=== PATIENT | male | born 1945 | race Two or more races ===

== ENCOUNTER 2024-08-19 11:16 | Emergency (ER) | payer MEDICARE ==
[~2024-08-19] VITALS: Ht 182.9 cm; Wt 75.3 kg
[2024-08-19] MEDS ORDERED: IV NS 0.9% 250 ML IV ONE (12:00)
[2024-08-19] MEDS ORDERED: IOHEXOL-350 100 ML VIAL IV ONE (12:00)
[2024-08-19] MEDS ORDERED: CT SWABBABLE VALVE TRANS SET 1 EA INFUS.SET MC ONE (12:00)
[2024-08-19] MEDS: LEVETIRACETAM (500MG) 500 MG in IV NS 0.9% 100 ML IV SCH (12:15)
[2024-08-19 12:20] LABS: CALCIUM, SERUM 8.3 mg/dL (8.5-10.1); CARBON DIOXIDE 25 mmol/L (21-32); CHLORIDE 105 mmol/L (98-107); CREATININE 0.7 mg/dL (0.6-1.3); GLUCOSE 111 mg/dL (74-106); POTASSIUM 3.9 mmol/L (3.5-5.1); SODIUM SERUM 140 mmol/L (136-145); UREA NITROGEN, BLOOD 15 mg/dL (7-18)
[2024-08-19 12:35] LABS: ALANINE AMINOTRANSFERASE 20 U/L (12-78); ALBUMIN 3.3 g/dL (3.4-5.0); ALKALINE PHOSPHATASE 82 U/L (46-116); ASPARTATE AMINOTRANSFERASE 22 U/L (15-37); BASOPHILS % (AUTO) 0.5 % (0.0-2.0); BILIRUBIN,DIRECT 0.2 mg/dL (0.0-0.2); BILIRUBIN,TOTAL 0.6 mg/dL (0.2-1.0); EOSINOPHILS # (AUTO) 0.1 K/uL (0.0-0.7); EOSINOPHILS % (AUTO) 1.1 % (0.0-6.0); HEMATOCRIT 45 % (39-51); LYMPHOCYTES # (AUTO) 1.3 K/uL (0.8-4.8); MEAN CORPUSCULAR HEMOGLOBIN 32 PG (26.0-33.0); MEAN CORPUSCULAR HGB CONC 34 g/dl (31.0-36.0); MEAN CORPUSCULAR VOLUME 95 fL (80-96); MONOCYTES # (AUTO) 0.5 K/uL (0.1-1.30); MONOCYTES % (AUTO) 9.5 % (2.0-12.0); NEUTROPHILS # (AUTO) 3.2 K/uL (1.8-8.9); NEUTROPHILS % (AUTO) 63.9 % (43.0-81.0); PLATELET COUNT (AUTO) 214 K/uL (150-450); RED BLOOD CELL COUNT(AUTO) 4.69 MIL/uL (4.5-6.0); RED CELL DISTRIBUTION WIDTH 13.8 % (11.5-15.0); TOTAL PROTEIN, SERUM 6.7 g/dL (6.4-8.2)
[2024-08-19 12:40] LABS: INR 1.1 (0.91-1.10); PARTIAL THROMBOPLASTIN TIME 26.5 SEC (24.3-34.3); PROTHROMBIN TIME 11.6 SECS (9.2-11.1)
[2024-08-19 12:42] LABS: ALCOHOL, BLOOD < 3 mg/dL (0-10)
[2024-08-19 13:58] VITALS: BP 116/70; TEMP 97.9; O2SAT 96
== END 2024-08-19 13:57 | disposition home or self-care (01) ==
LOC: ER 11:47
DX: S09.90XA Unspecified injury of head, initial encounter (principal); G40.89 Other seizures; G83.84 Todd's paralysis (postepileptic); R41.82 Altered mental status, unspecified; I49.1 Atrial premature depolarization; J44.9 Chronic obstructive pulmonary disease, unspecified; M50.30 Other cervical disc degeneration, unspecified cervical region; W20.8XXA Other cause of strike by thrown, projected or falling object, initial encounter; Y93.89 Activity, other specified; Y92.89 Other specified places as the place of occurrence of the external cause; Y99.8 Other external cause status
CPT/HCPCS: 99291; 96365; 93005; 72125; 70450; 70498; 70496; 85025; 80048; 80076; 36415; 84484; 85730; 82962; 80320; J7030; J7050; J1953; Q9967; G0480